=== PATIENT | male | born 1975 | race Caucasian/White ===

== ENCOUNTER 2019-07-30 12:02 | Emergency (ER) | payer OTHER ==
[~2019-07-30] VITALS: Ht 175.3 cm; Wt 108.9 kg
--- NOTE | 2019-07-30 12:05 | NUR ---
Patient ambulated to bed 10. RN evaluating patient at bedside.
[2019-07-30 12:23] VITALS: BP 133/79
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
--- NOTE | 2019-07-30 12:35 | NUR ---
Patient taken to XRAY via wheelchair by tech.
[2019-07-30] MEDS ORDERED: KETOROLAC 60 MG/2 ML VIAL IM ONE (12:40)
[2019-07-30 15:12] VITALS: BP 133/79
--- NOTE | 2019-07-30 15:15 | NUR ---
Patient discharged with v/s stable. Written and verbal after care instructions given and explained. Patient alert, oriented and verbalized understanding of instructions. Ambulatory with steady gait. All questions addressed prior to discharge. ID band removed. Patient advised to follow up with PMD. Rx of FLEXERIL, IBUPROFEN given. Patient educated on indication of medication including possible reaction and side effects. Opportunity to ask questions provided and answered.
== END 2019-07-30 15:15 | disposition home or self-care (01) ==
LOC: MED 12:02
DX: S40.012A Contusion of left shoulder, initial encounter (principal); S00.31XA Abrasion of nose, initial encounter; V49.88XA Car occupant (driver) (passenger) injured in other specified transport accidents, initial encounter; Y93.89 Activity, other specified; Y92.89 Other specified places as the place of occurrence of the external cause; Y99.8 Other external cause status
CPT/HCPCS: 70160; 73030; 96372; 99284; J1885; Q0092